=== PATIENT | male | born 1970 | race Caucasian/White ===

== ENCOUNTER 2016-06-26 07:57 | Emergency (ER) | payer SELFPAY ==
[~2016-06-26] VITALS: Ht 172.7 cm; Wt 113.0 kg
[2016-06-26 08:00] VITALS: BP 158/101; PULSE 74; RESP 15; TEMP 98.1; O2SAT 98
--- NOTE | 2016-06-26 08:07 | PD ---
HPI . right leg pain x 1 week Chief Complaint: Musculoskeletal Complaint Time Seen by Provider: 08:07 Travel History International Travel<30 days: No Contact w/Intl Traveler<30days: No Traveled to known affect area: No History of Present Illness HPI 45-year-old male with no significant past med history here with complaints of right leg pain for over one week. Patient says he has pain that is starting in his buttocks and radiating down his right leg. He denies any recent injury or trauma to the area. He does not have a primary care provider. He tells me the pain is worse with ambulation. 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 [facility] Social History Tobacco Use: Yes Allergies-Medications (Allergen,Severity, Reaction): Coded Allergies: No Known Allergies (Unverified , 06/26/16) Reported Meds & Prescriptions Reported Meds & Active Scripts Active Ibuprofen 800 Mg Tab 800 Mg PO TID Medrol Dosepak (Methylprednisolone) 4 Mg Dspk 4 Mg PO DIRECTED Per Pharmacist direction Review of Systems General / Constitutional: No: Fever Eyes: No: Visual changes HENT: No: Headaches Cardiovascular: No: Chest Pain or Discomfort Respiratory: No: Shortness of Breath Gastrointestinal: No: Abdominal Pain Genitourinary: No: Dysuria Musculoskeletal: Positive: Pain (right leg pain ) Skin: No Rash Neurologic: No: Weakness Psychiatric: No: Depression Endocrine: No: Polydipsia Hematologic/Lymphatic: No: Easy Bruising Physical Exam Narrative GENERAL: AAO x 3, no acute distress, Well-nourished, well-developed patient. SKIN: Warm and dry. No visible rashes or bruising. HEAD: Normocephalic and atraumatic. EYES: No scleral icterus. No injection or drainage. ENT: No nasal drainage noted. Airway patent. NECK: Supple, trachea midline. No JVD. CARDIOVASCULAR: Regular rate and rhythm without murmurs, gallops, or rubs. RESPIRATORY: Breath sounds equal bilaterally. No accessory muscle use. No rhonchi or rales. GASTROINTESTINAL: Abdomen soft, non-tender, nondistended. EXTREMITIES: No cyanosis or edema. Full ROM b/l legs. Tenderness to right gluteal with palpation radiating down right leg. Straight leg raise is negative. BACK: Nontender without obvious deformity. No CVA tenderness. PSYCH: AAO x 3, normal affect. Data Data Last Documented VS Vital Signs Date Time Temp Pulse Resp B/P Pulse Ox O2 Delivery O2 Flow Rate FiO2 06/26/16 08:00 98.1 74 15 158/101 98 MDM Medical Decision Making Medical Screen Exam Complete: Yes Emergency Medical Condition: Yes Medical Record Reviewed: Yes (no prior on file) Differential Diagnosis Sciatica, osteoarthritis, less likely acute fracture Narrative Course 45-year-old male with no significant past med history here with complaints of right leg pain for over one week. Patient says he has pain that is starting in his buttocks and radiating down his right leg. He denies any recent injury or trauma to the area. He does not have a primary care provider. He tells me the pain is worse with ambulation. 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 Patient seen and examined. He appears to have sciatica. I discussed this with him. I explained that he will need to establish with a primary care provider for further workup and treatment. I discussed that I will provide him with steroids and ibuprofen for anti- inflammatory effects. Patient verbalized understanding of instructions, questions were answered, and thanked me for their care. I advised them if their condition worsens, please return to the nearest emergency room for further care. Diagnosis Primary Impression: Sciatica Qualified Code: M54.31 - Sciatica of right side Additional Impression: Leg pain, right Patient Instructions: General Instructions, Sciatica (ED) Additional Instructions: Please return to emergency department if your symptoms return or worsen. Follow up with your primary care provider. Take medications as prescribed. Please follow-up with her primary care provider regarding your blood pressure. It will need to be monitored. Med/Other Pt SpecificInfo: Prescription(s) given Scripts Ibuprofen 800 Mg Zkg016 Mg PO TID #21 TAB Prov:Mikhail Modi MD 06/26/16 Methylprednisolone Dosepak (Medrol Dosepak)4 Mg Dspk4 Mg PO DIRECTED #1 DSPK Ref 0 Per Pharmacist direction Prov:Mikhail Modi MD 06/26/16 Disposition: 01 DISCHARGE HOME Condition: Stable Iliana Parmar Jun 26, 2016 08:07
[2016-06-26] MEDS ORDERED: MEDR4PAK PO (08:14)
[2016-06-26] MEDS ORDERED: IBUP800T23 PO (08:14)
== END 2016-06-26 08:36 | disposition home or self-care (01) ==
LOC: NEPK 07:57
DX: M54.31 Sciatica, right side (principal)
CPT/HCPCS: 99283